=== PATIENT | female | born 1985 | race Hispanic/Latino ===

== ENCOUNTER 2022-01-03 08:07 | Observation (INO) | payer BC ==
[~2022-01-03] VITALS: Ht 154.9 cm; Wt 71.6 kg
[2022-01-03 09:00] VITALS: BP 127/79
[2022-01-03] MEDS ORDERED: 0.9%NACL 1000ML 1,000 ML IV SCH (09:30)
[2022-01-03 09:55] LABS: HEMATOCRIT 36.2 % (36-48); MEAN CORPUSCULAR HEMOGLOBIN 24.5 pg (27.0-33.0); MEAN CORPUSCULAR HGB CONC 29.3 g/dL (32.0-36.0); MEAN CORPUSCULAR VOLUME 83.8 fL (79-99); PLATELET COUNT (AUTO) 398 K/uL (130-400); RED BLOOD CELL COUNT(AUTO) 4.32 MIL/uL (4.00-5.50); WHITE BLOOD COUNT (AUTO) 7.7 K/uL (4.8-10.8)
[2022-01-03] MEDS ORDERED: FERR-72 PO (10:00)
[2022-01-03 12:26] VITALS: BP 131/86
[2022-01-03 16:15] VITALS: BP 141/90
[2022-01-03 19:30] VITALS: BP 133/74
[2022-01-03 20:23] LABS: HEMATOCRIT 45.6 % (36-48)
== END 2022-01-03 20:30 | disposition home or self-care (01) ==
LOC: EDSTATUS 08:07 → WSH 08:15 → INTOOBSV 08:15 → OBSVTOIN 08:15
PROVIDERS: ADMIT Obstetrics & Gynecology; ATTEND Obstetrics & Gynecology
DX: D64.9 Anemia, unspecified (principal); N92.1 Excessive and frequent menstruation with irregular cycle; D25.9 Leiomyoma of uterus, unspecified; K46.9 Unspecified abdominal hernia without obstruction or gangrene; Z79.899 Other long term (current) drug therapy; Z98.890 Other specified postprocedural states
CPT/HCPCS: 36415; 36430; 85014; 85018; 85027; 86850; 86900; 86901; 86923; 96360; 96361; G0378 ×7; J7030; P9016 ×2

== ENCOUNTER 2022-01-09 05:33 | Observation (INO) | payer BC ==
[2022-01-06 16:09] LABS: BASOPHILS % (AUTO) 0.5 % (0.0-5.0); EOSINOPHILS % (AUTO) 1.9 % (0.0-8.0); HEMATOCRIT 46.2 % (36-48); LYMPHOCYTES % (AUTO) 20.8 % (21.0-51.0); MEAN CORPUSCULAR HEMOGLOBIN 26.4 pg (27.0-33.0); MEAN CORPUSCULAR HGB CONC 31.8 g/dL (32.0-36.0); MEAN CORPUSCULAR VOLUME 82.9 fL (79-99); MONOCYTES % (AUTO) 7.8 % (3.0-13.0); NEUTROPHILS % (AUTO) 68.6 % (40.0-77.0); PLATELET COUNT (AUTO) 344 K/uL (130-400); RED BLOOD CELL COUNT(AUTO) 5.57 MIL/uL (4.00-5.50); WHITE BLOOD COUNT (AUTO) 7.7 K/uL (4.8-10.8)
[2022-01-06 16:21] VITALS: BP 129/71
[2022-01-06 16:25] LABS: APPEARANCE,URINE Clear (CLEAR); BILIRUBIN,URINE Negative (NEGATIVE); COLOR,URINE Yellow (YELLOW); GLUCOSE, URINE (UA) Negative (NEGATIVE); KETONES,URINE Negative (NEGATIVE); LEUKOCYTE ESTERASE ,URINE Negative (NEGATIVE); NITRATE,URINE Negative (NEGATIVE); OCCULT BLOOD,URINE Negative (NEGATIVE); PH,URINE 5.5 (5.0-8.0); PROTEIN,URINE Negative (NEGATIVE); UROBILINOGEN,URINE 0.2 mg/dL (0.2-1.0)
[~2022-01-09] VITALS: Ht 154.9 cm; Wt 71.6 kg
[2022-01-09] VITALS (23 sets, daily range): BP systolic 92–151; BP diastolic 48–94
[~2022-01-09 05:33] MED LIST: FERR-72 PO
[2022-01-09] MEDS: CEFAZOLIN SODIUM 1 GM VIAL IVP SCH ×2 (06:00→07:50)
[2022-01-09] MEDS ORDERED: LACTATED RINGERS 1000ML 1,000 ML IV ONE (06:16)
[2022-01-09] MEDS ORDERED: PROPOFOL 10 MG/ML 20ML VIAL IV ONE (07:44)
[2022-01-09] MEDS ORDERED: ONDANSETRON 4MG INJ ONE ×3 (07:44→09:40)
[2022-01-09] MEDS ORDERED: FENTANYL CITRATE PF 50 MCG/1 ML 2ML VIAL ONE (07:45)
[2022-01-09] MEDS ORDERED: PROPOFOL 1000 MG/100 ML 100 ML IV ONE (07:49)
[2022-01-09] MEDS ORDERED: FAMOTIDINE 20MG VIAL IV ONE (08:02)
[2022-01-09] MEDS ORDERED: HYDROMORPHONE 1 MG INJ ONE (08:16)
[2022-01-09] MEDS ORDERED: GLYCOPYRROLATE 1 MG/5 ML SYRINGE ONE (08:55)
[2022-01-09] MEDS ORDERED: MEPERIDINE-PF 25 MG/ML SYG ONE (09:40)
[2022-01-09] MEDS: DEXTROSE 5 %-0.45 % NACL 1,000 ML IV PRN ×2 (10:54→19:12)
[2022-01-09] MEDS ORDERED: ONDANSETRON 4MG INJ IVP PRN (11:00)
[2022-01-09] MEDS ORDERED: IBUPROFEN 600 MG TABLET PO PRN (11:00)
[2022-01-09] MEDS ORDERED: MEPERIDINE-PF 75 MG/ML SYG IM PRN (11:00)
[2022-01-09] MEDS ORDERED: ACETAMINOPHEN WITH CODEINE 1 TAB TAB PO PRN (11:00)
[2022-01-09] MEDS ORDERED: PROMETHAZINE HCL 25 MG/ML 1ML AMPULE IM PRN ×2 (11:00)
[2022-01-09] MEDS ORDERED: BISACODYL 10 MG SUPP.RECT RC PRN (11:00)
[2022-01-09] MEDS: DOCUSATE SODIUM 100 MG CAP PO PRN (20:59)
[2022-01-09] MEDS: SIMETHICONE 80 MG TAB.CHEW PO PRN (21:00)
[2022-01-10] MEDS ORDERED: IBUPROFEN 800 MG TAB PO PRN (02:00)
[2022-01-10] MEDS ORDERED: HYDROCODONE/ACETAMINOPHEN 5/325 MG TAB PO PRN (02:00)
[2022-01-10 04:02] VITALS: BP 123/70
[2022-01-10 05:22] LABS: HEMATOCRIT 41.4 % (36-48); MEAN CORPUSCULAR HEMOGLOBIN 26.7 pg (27.0-33.0); MEAN CORPUSCULAR HGB CONC 32.4 g/dL (32.0-36.0); MEAN CORPUSCULAR VOLUME 82.5 fL (79-99); RED BLOOD CELL COUNT(AUTO) 5.02 MIL/uL (4.00-5.50); RED CELL DISTRIBUTION WIDTH 26.5 % (11.0-15.5); WHITE BLOOD COUNT (AUTO) 11.9 K/uL (4.8-10.8)
[2022-01-10 07:15] VITALS: BP 122/75
[2022-01-10] MEDS: SIMETHICONE 80 MG TAB.CHEW PO PRN (08:03)
[2022-01-10] MEDS: DOCUSATE SODIUM 100 MG CAP PO PRN (08:03)
[2022-01-10 10:45] VITALS: BP 120/73
== END 2022-01-10 13:00 | disposition home or self-care (01) ==
LOC: DAH 05:33 → DAHIP 05:34 → WSH 10:20 → EDUNIT# 01-10 08:30
PROVIDERS: ADMIT Obstetrics & Gynecology; ATTEND Obstetrics & Gynecology
DX: N92.1 Excessive and frequent menstruation with irregular cycle (principal); Z20.822 Contact with and (suspected) exposure to COVID-19; D50.0 Iron deficiency anemia secondary to blood loss (chronic); D25.9 Leiomyoma of uterus, unspecified; N81.5 Vaginal enterocele
CPT/HCPCS: 36415 ×3; 58263; 81003; 85025; 85027; 85730; 86850 ×2; 86900 ×2; 86901 ×2; 87635; 96372; 96374; A4215; A4221; A4222; A4223; A4351; A4510; A4600; A4606; A4663; A6260; C9803; G0378 ×29; J0690; J1170; J2175 ×2; J2405 ×4; J2550; J2704 ×2; J3010; J3490 ×2; J7120 ×2